=== PATIENT | female | born 1960 | race Caucasian/White ===

== ENCOUNTER → 2018-06-14 | Outpatient (CLI) | payer OTHER ==
[~2018-06-14] MED LIST: ACET325T14 PO; ALLERGY PILL PO; B STRESS PO; CARV12.543 PO; ESTR1PAT10 TD; LOSA1TAB19 PO; OXYC-302 PO; PREMARIN PO; PREVACID OTC PO; ST JOHN'S WART PO; TIZA2CAP2 PO; VITAMIN D3 PO; VITAMIN E PO
== END | disposition home or self-care (01) ==
LOC: CFH 08:50
PROVIDERS: ATTEND Psychiatry & Neurology Neurology
DX: M47.892 Other spondylosis, cervical region (principal); R51 Headache
CPT/HCPCS: 70551; 72040

== ENCOUNTER 2019-03-30 09:18 | Emergency (ER) | payer OTHER ==
[~2019-03-30] VITALS: Ht 172.7 cm; Wt 89.0 kg
[2019-03-30] MEDS ORDERED: KETOROLAC 30 MG/1 ML ONE (10:30)
[2019-03-30] MEDS ORDERED: KETOROLAC 30 MG/1 ML IM ONE (10:30)
[2019-03-30 10:57] VITALS: BP 142/84
== END 2019-03-30 10:58 | disposition home or self-care (01) ==
LOC: ED 10:13
DX: M54.41 Lumbago with sciatica, right side (principal); M54.16 Radiculopathy, lumbar region; I10 Essential (primary) hypertension; E11.9 Type 2 diabetes mellitus without complications; G43.909 Migraine, unspecified, not intractable, without status migrainosus
CPT/HCPCS: 96372; 99283; J1885

== ENCOUNTER → 2020-06-25 | Outpatient (CLI) | payer OTHER ==
[~2020-06-25] MED LIST changes: +OMNIPAQUE 350 MG/ML, 100ML BOTTLE ONE
== END | disposition home or self-care (01) ==
LOC: RAD 12:04
PROVIDERS: ATTEND Physician Assistant Surgical
DX: Z01.818 Encounter for other preprocedural examination (principal); M41.50 Other secondary scoliosis, site unspecified; M51.35 Other intervertebral disc degeneration, thoracolumbar region; M41.85 Other forms of scoliosis, thoracolumbar region; J84.10 Pulmonary fibrosis, unspecified; M47.816 Spondylosis without myelopathy or radiculopathy, lumbar region; M48.07 Spinal stenosis, lumbosacral region; M19.90 Unspecified osteoarthritis, unspecified site; Q63.1 Lobulated, fused and horseshoe kidney; Z90.49 Acquired absence of other specified parts of digestive tract
CPT/HCPCS: 72082; 72128; 72131; 74174; Q9967

== ENCOUNTER 2021-03-26 10:00 | Outpatient (CLI) | payer OTHER ==
[~2021-03-26 10:00] MED LIST changes: -OMNIPAQUE 350 MG/ML, 100ML BOTTLE ONE; -OXYC-302 PO; +OXYC1TAB14 PO
== END 2021-03-26 23:59 | disposition home or self-care (01) ==
LOC: CARD 10:00
PROVIDERS: ATTEND Physician Assistant
DX: G62.9 Polyneuropathy, unspecified (principal); R25.1 Tremor, unspecified
CPT/HCPCS: 95886; 95908